=== PATIENT | male | born 1995 | race Caucasian/White ===

== ENCOUNTER 2024-08-09 22:01 | Emergency (ER) | payer SELFPAY ==
[~2024-08-09] VITALS: Ht 177.8 cm; Wt 95.3 kg
[2024-08-09] MEDS ORDERED: NEOMYCIN-POLYMYXIN-HC OTIC SUSP. 10 ML BTL AD ONE (22:20)
[2024-08-09] MEDS ORDERED: CIPROFLOXACIN HCL 500 MG/TAB PO ONE (22:20)
[2024-08-09] MEDS ORDERED: CIPROFLOXACN500 MG PO (22:23)
[2024-08-09] MEDS ORDERED: CORTISPORIN OTI10 ML AD (22:23)
[2024-08-09 22:57] VITALS: BP 121/73
== END 2024-08-09 22:58 | disposition home or self-care (01) | DRG 153 ==
LOC: ED 22:01
DX: H66.91 Otitis media, unspecified, right ear (principal); H60.91 Unspecified otitis externa, right ear